=== PATIENT | female | born 1990 | race Two or more races ===

== ENCOUNTER 2024-11-23 13:10 | Emergency (ER) | payer SELFPAY ==
[~2024-11-23] VITALS: Ht 157.5 cm; Wt 54.5 kg
[~2024-11-23 13:10] MED LIST: ARIP2TAB27 PO; CITA-144 PO; HYDR-4808 PO; TRAZ-252 PO
[2024-11-23 13:16] VITALS: TEMP 98
[2024-11-23] MEDS: IBUPROFEN 600 MG TABLET PO ONE (15:00)
[2024-11-23 15:56] VITALS: BP 131/87; PULSE 77; RESP 18; O2SAT 98
== END 2024-11-23 16:00 | disposition home or self-care (01) ==
LOC: EMS 13:10
DX: S06.0XAA Concussion with loss of consciousness status unknown, initial encounter (principal); F41.9 Anxiety disorder, unspecified; F12.90 Cannabis use, unspecified, uncomplicated; Z91.040 Latex allergy status; Z79.899 Other long term (current) drug therapy; W19.XXXA Unspecified fall, initial encounter; Y93.89 Activity, other specified; Y92.89 Other specified places as the place of occurrence of the external cause; Y99.8 Other external cause status
CPT/HCPCS: 99282; Z7502; Z7610